=== PATIENT | female | born 1960 | race Caucasian/White ===

== ENCOUNTER 2021-08-25 15:30 | Outpatient (REF) | payer OTHER, SELFPAY ==
--- NOTE | ~2021-08-25 | XR_ITS ---
EXAMINATION: XR FOOT, RIGHT CLINICAL INFORMATION: Right foot osteoarthritis COMPARISON: 05/09/2013 TECHNIQUE: AP, lateral, and oblique views of the right foot. FINDINGS: Subtle subchondral lucencies in the base of the first proximal phalanx suggesting mild first MTP arthritis. No fracture or dislocation. Normal bony alignment. Calcaneal spurring. XR/XR foot RT 2V IMPRESSION: Mild first MTP arthritis.
[2021-08-25 15:50] LABS: MANUAL DIFF FLAG NO
[2021-08-25 15:58] LABS: Basophils Percent Auto 0.3 % (0-2); Eosinophils Absolute Auto 0.2 X10*3/uL (0.0-0.4); Eosinophils Percent Auto 2.2 % (0-4); Hematocrit 42.9 % (37.0-47.0); Hemoglobin 14.5 g/dl (12.0-16.0); Imm Gran Abs Auto 0.02 X10*3/uL (0.00-0.03); Imm Gran Pct Auto 0.3 % (0.0-0.4); Lymphocytes Absolute Auto 1.6 X10*3/uL (1.2-4.9); Mean Corpuscular HGB Conc 33.8 g/dl (31.0-35.0); Mean Corpuscular Hemoglobin 28.3 pg (27.0-33.0); Mean Corpuscular Volume 83.6 fL (80.0-98.0); Mean Platelet Volume 9.6 fL (9.4-12.3); Monocytes Absolute Auto 0.7 X10*3/uL (0.1-1.2); Monocytes Percent Auto 9.8 % (2-11); Neutrophils Absolute Auto 4.3 x10*3/uL (2.0-8.3); Neutrophils Percent Auto 63.4 % (45-73); Platelet Count 276 X10*3/uL (160-400); Red Blood Count 5.13 X10*6/uL (4.20-5.50); Red Cell Distribution Width 12.2 % (11.0-16.0); White Blood Count 6.7 X10*3/uL (4.8-10.8)
[2021-08-25 16:23] LABS: Alanine Aminotransferase 15 U/L (0-31); Albumin Level 4.4 g/dL (3.5-5.0); Alkaline Phosphatase 86 U/L (39-117); Anion Gap 12 (12-20); Aspartate Amino Transferase 19 U/L (5-31); Bilirubin Total 0.9 mg/dL (0.0-1.0); Blood Urea Nitrogen 14 mg/dL (9-16); Calcium 10.2 mg/dL (8.4-10.2); Carbon Dioxide 27 mmol/L (22-29); Chloride 106 mmol/L (96-108); Cholesterol 334 mg/dL; Estimated Glomerular Filt Rate > 60; Glucose Fasting 90 mg/dL (60-99); HDL Cholesterol 50 mg/dL; LDL Cholesterol Calculated 253 mg/dl; Sodium 141 mmol/L (135-145); Total Protein 7.7 g/dL (6.5-8.0); Triglycerides 155 mg/dL
[2021-08-25 16:44] LABS: Free T4 (Free Thyroxine) 0.99 ng/dL (0.71-1.85); Thyroid Stimulating Hormone 1.02 uIU/mL (0.32-4.0); Vitamin D 25-OH Total 17.1 ng/mL (>30)
== END 2021-08-25 15:31 | disposition home or self-care (01) ==
LOC: HO.XRAY 15:30
PROVIDERS: PCP Internal Medicine; Visit Provider Internal Medicine
DX: Z00.00 Encounter for general adult medical examination without abnormal findings (principal); E55.9 Vitamin D deficiency, unspecified; M19.071 Primary osteoarthritis, right ankle and foot
CPT/HCPCS: 36415; 73620; 80053; 80061; 82306; 84439; 84443; 85025

== ENCOUNTER → 2021-11-24 14:05 | Outpatient (BNVA) | payer OTHER, SELFPAY | PROVIDERS: PCP Internal Medicine; Referring Provider Internal Medicine; Visit Provider Internal Medicine | DX: I49.3 Ventricular premature depolarization (principal) | CPT/HCPCS: 93005 ==

== ENCOUNTER → 2021-12-16 07:30 | Outpatient (REF) | payer OTHER, SELFPAY ==
--- NOTE | 2021-12-16 07:43 | HM_ITS ---
Conclusion: 1. Patient was monitored for total period of 3 days 2. Baseline was normal sinus rhythm with average heart rate of 64 beats per minute 3. No significant pauses or bradycardia noted 4. Total of 25,371 PVCs of 2 different morphology accounting for 9.07% of total burden accounting for frequent PVCs 5. Rare PACs noted 6. Patient reported 11 events. Most of this correlated with isolated PVCs MTDD
== END ==
LOC: HO.CARD 07:30
PROVIDERS: Visit Provider Internal Medicine
DX: I49.3 Ventricular premature depolarization (principal)
CPT/HCPCS: 93242

== ENCOUNTER → 2021-12-30 11:02 | Outpatient (REF) | payer OTHER, SELFPAY | LOC: HO.SL 11:02 | PROVIDERS: PCP Internal Medicine; Visit Provider Internal Medicine | DX: G47.33 Obstructive sleep apnea (adult) (pediatric) (principal) | CPT/HCPCS: 95806 ==

== ENCOUNTER → 2022-01-06 07:25 | Outpatient (REF) | payer OTHER, SELFPAY ==
--- NOTE | 2022-01-06 07:30 | CA_ITS ---
Transthoracic Echocardiogram Patient (Last, First, Middle): iRmma Sawyer M Gender: Female Date of : 1960 Age: 61 Procedure Date: 01/06/2022 Procedure Type: Transthoracic Echocardiogram Location: OP Height: 160.02 cm Weight: 88.45 kg BSA: 1.91 m2 Heart Rate: bpm BP: 123 / 76 mmHg Sales Representative Health Insurance: [employer] Referring MD: Je Reyes MD Rn Spine: Kareem Boyd MD Symptoms: I49.3 - Ventricular premature depolarization Study Quality: Adequate ECG Rhythm: Frequent ventricular premature beats Conclusions: - 1. Normal LV systolic function with grade 1 diastolic dysfunction 2. Cardiac valvular Doppler within normal limits 3. Normal RV systolic pressure 4. No gross pericardial effusion Findings Left Ventricle Normal left ventricular size, thickness, and systolic function. The visually estimated ejection fraction is between 60-65%. Spectral Doppler is indicative of an impaired relaxation filling pattern. E/E prime ratio is <8, consistent with normal filling pressures. Evidence suggests grade I (mild) diastolic dysfunction. Right Ventricle Normal right ventricular cavity size and systolic function. Atria Both atria are normal in size. There is no evidence of interatrial shunt. Aortic Valve The aortic valve structure and function is likely normal. There is no aortic valve stenosis. There is no aortic valve regurgitation. Mitral Valve Normal mitral valve structure and function. There is trace mitral valve regurgitation. There is no mitral valve stenosis. Pulmonic Valve The pulmonic valve is likely normal. There is trace pulmonic valve regurgitation. Tricuspid Valve Normal tricuspid valve structure. There is mild tricuspid valve regurgitation. The right ventricular systolic pressure is normal. The right ventricular systolic pressure is 22 mmHg. Normal right atrial pressure. There is no evidence of pulmonary hypertension. Great Vessels All visible segments of the aorta are normal in size. The pulmonary artery was not well visualized. Venous The inferior vena cava is normal in size and collapses greater than 50% with inspiration. Pericardium/Pleural There is no evidence of pericardial effusion. Prior Study Comparison No prior study available for comparison. Measurements 2D Linear Measurements IVSd: 0.93 0.6-0.9/0.6-1.0 cm LVIDd: 4.30 3.9-5.3/4.2-5.9 cm LVIDd Index: 2.25 2.4-3.2/2.2-3.1 cm/m2 LVIDs: 2.44 2.0-3.6 cm LVPWd: 0.70 0.7-1.1 cm LA Diam: 3.20 2.7-3.8/3.0-4.0 cm LAIDs Index: 1.68 1.5-2.3 cm/m2 LV Mass: 133.52 67-162/88-224 g LV Mass Index: 69.91 43-95/49-115 g/m2 LVOT Diam: 2.00 3.0+(-)1.3 cm 2D Systolic Function EF 4C: 60.60 >55% Mitral Valve MV Pk E: 0.51 MV PK A: 0.60 MV Decel Time: 217.00 E/A: 0.90 E'Lateral: 5.98 E'Medial: 3.15 E/E' Med: 16.20 E/E' Lat: 8.50 PHT: 63.00 MVA PHT: 3.49 Decel [place]: 2.35 Aortic Valve AoV Pk Drake: 1.40 AoV Mn Drake: 0.92 AoV VTI: 0.24 AoV Pk Grad: 8.00 Aov Mn Grad: 4.00 TRINITY Cont.VTI: 3.25 LVOT LVOT Pk Drake: 1.28 LVOT Mn Drake: 0.88 LVOT VTI: 0.25 LVOT Pk Grad: 7.00 LVOT Mn Grad: 4.00 LVOT Diam: 2.00 LVOT Area: 3.14 Diastolic Function MV Pk E: 0.51 MV Pk A: 0.60 E/A: 0.90 E'Medial: 3.15 E/E' Med: 16.20 E' Laterial: 5.98 E/E' Lat: 8.50 Right Ventricle TAPSE (mm): 23.90 TVS' Drake: 18.00 Tricuspid Valve TR Pk Drake: 2.20 TR Pk Grad: 19.00 RA Press: 3.00 RVSP: 22.00 Great Vessels Aorta Sinus of Valsalva: 2.76 2.0-3.[address] [place]: 2.41 1.7-3.4 cm Ao Asc: 3.10 2.1-3.4 cm Pulmonary Veins Pulm Vein S/D 1.40 Pulmonary Valve PV Pk Drake: 0.99 Peak PV Grad: 4.00 Updated in Other Vendor System with Status of Final Kareem Boyd MD electronically signed on 01/06/2022 12:10:58 PM with status of Final
--- NOTE | 2022-01-06 07:31 | CA_ITS ---
Acquisition Time: 2022-01-06 08:17:14 Total Exercise Time: 00:07:00 Test Indications: ABN EKG Medications: SEE CHART Protocol: HOLLI Max HR: 155 BPM 96% of Pred: 160 BPM Max BP: 170/086 mmHG Max Work Load: 8.5 METS Exercise stress test with exercise 7 min of Holli protocol, with mild sob, no chest discomfort, with isolated PVCs and runs of ventricular bigeminy at baseline and early exercise which improved as exercise continued, No PVCs noted in stage 2 and 3, however they returned in recovery, with normotensive response to exercise, without EKG changes meeting criteria for ischemia. Test reviewed with Dr Boyd. Referred By: Je Reyes Overread By: GRAHAM KOHLI
== END ==
LOC: HO.CARD 07:25
PROVIDERS: Visit Provider Internal Medicine
DX: I49.3 Ventricular premature depolarization (principal)
CPT/HCPCS: 93017; 93306

== ENCOUNTER 2022-01-08 09:02 | Day surgery (SDC) | payer OTHER, SELFPAY ==
--- NOTE | 2022-01-07 08:25 | P.CONAN_ITS ---
Documented by User: Christel Reese NP 01/07/22 12:01 HPI - Anesthesia Eval Consult details Narrative: 61yo F for Colonoscopy Recent cardiac w/u for palpitations. Stress, Echo, Holter done. Optimized to proceed per cardiology. [facility] Active Problems Active Problems: All Active Problems (Updated 11/24/21 @ 14:31 by Je Reyes MD) PVC (premature ventricular contraction) (Acute) Past Medical History Medical History HLD (hyperlipidemia) HTN (hypertension) PVC (premature ventricular contraction) Family History Family History Father No problems noted. Mother No problems noted. Surgical History Surgical History (Updated 01/08/22 @ 10:26 by Lamar Dooley MD) H/O colonoscopy H/O hand surgery History of tonsillectomy History of tubal ligation Social History Social History Patient Tobacco Use Status: Never used Tobacco Are you DNR?: No Advance Directives: No Advance Directives Information Provided: Yes Nutrition Risks: No Nutritional Risk Meds Allergies Allergy/AdvReac Type Severity Reaction Status Date / Time azithromycin [From ZITHROMAX] Allergy Unknown RASH Verified 11/24/21 14:14 Home Medications Medication Instructions Recorded Confirmed Last Taken Type atorvastatin 20 mg tablet 20 mg PO DAILY 11/24/21 11/24/21 Unknown History cholecalciferol (vitamin D3) 50 50 mcg PO DAILY 11/24/21 11/24/21 Unknown History mcg (2,000 unit) capsule lisinopril 5 mg tablet 5 mg PO DAILY 11/24/21 11/24/21 01/08/22 History magnesium oxide 400 mg PO DAILY 11/24/21 11/24/21 Unknown History Exam Exam Date and Time: January 07, 2022 0825 Pertinent Lab Results Pertinent Lab Results: Laboratory Tests 08/25/21 08/25/21 15:48 15:48 WBC 6.7 Hgb 14.5 Hct 42.9 Plt Count 276 Sodium 141 Potassium 4.0 Chloride 106 Carbon Dioxide 27 BUN 14 Creatinine 0.89 Narrative Narrative: EKG 11/2021 sinus rhythm at 85/Min; nonspecific ST-T changes; normal MT/QTc Echo 01/2022 Conclusions: - 1.? Normal LV systolic function with grade 1 diastolic ? dysfunction? 2.? Cardiac valvular Doppler within normal limits? 3.? Normal RV systolic pressure? 4.? No gross pericardial effusion? ? ? Exercise Stress 01/2022 Protocol: NOEL ? Max HR: 155 BPM? 96% of? Pred: 160 BPM Max BP: 170/086 mmHG Max Work Load: 8.5 METS ? Exercise stress test with exercise 7 min of Noel protocol, with mild sob, no ?chest discomfort, with isolated PVCs and runs of ventricular bigeminy at ?baseline and early exercise which improved as exercise continued, No PVCs noted ?in stage 2 and 3, however they returned in recovery, with normotensive response ?to exercise, without EKG changes meeting criteria for ischemia. Test reviewed ?with Dr Boyd. Holter 12/2021 1. Patient was monitored for total period of 3 days 2. Baseline was normal sinus rhythm with average heart rate of 64 beats per minute 3. No significant pauses or bradycardia noted 4. Total of 25,371 PVCs of 2 different morphology accounting for 9.07% of total burden accounting for frequent PVCs 5. Rare PACs noted 6. Patient reported 11 events.? Most of this correlated with isolated PVCs Documented by User: Lamar Dooley MD 01/08/22 10:28 [facility] Past Medical History Medical History HLD (hyperlipidemia) HTN (hypertension) PVC (premature ventricular contraction) Family History Family History Father No problems noted. Mother No problems noted. Family history of problems with anesthesia: No Surgical History Surgical History (Updated 01/08/22 @ 10:26 by Lamar Dooley MD) H/O colonoscopy H/O hand surgery History of tonsillectomy History of tubal ligation History of Problems with Anesthesia: No Social History Social History Patient Tobacco Use Status: Never used Tobacco Are you DNR?: No Advance Directives: No Advance Directives Information Provided: Yes Nutrition Risks: No Nutritional Risk Meds Allergies Allergy/AdvReac Type Severity Reaction Status Date / Time azithromycin [From ZITHROMAX] Allergy Unknown RASH Verified 11/24/21 14:14 Home Medications Medication Instructions Recorded Confirmed Last Taken Type atorvastatin 20 mg tablet 20 mg PO DAILY 11/24/21 11/24/21 Unknown History cholecalciferol (vitamin D3) 50 50 mcg PO DAILY 11/24/21 11/24/21 Unknown History mcg (2,000 unit) capsule lisinopril 5 mg tablet 5 mg PO DAILY 11/24/21 11/24/21 01/08/22 History magnesium oxide 400 mg PO DAILY 11/24/21 11/24/21 Unknown History Exam Airway Mallampati Class: II TM Dist: >3cm Neck ROM: Full Loose/Missing/Broken Teeth: No Heart: RRR Lungs: CTAB Assessment and Plan Assessment Anesthesia Assessment: Anesthesia Plan Discussed and Chart Reviewed Final Anesthetic Review Family History of Problems with Anesthesia: No History of Problems with Anesthesia: No NPO: Yes ASA Class: II Final Preanesthetic Review: No Changes in Pt Med Stat, Meds/Allgs Chart Reviewed, Consent Obtained/Reviewed and Anes Risks/Benef Reviewed Patient Risk: Low Procedure Risk: Low Assessment/Block/Sedation in SS: Assess/Block/Sedation-SS Anesthetic Plan Anesthetic Plan: MAC: Disposition: Standard PACU
[2022-01-08 09:03] VITALS: BMI 33.6
[2022-01-08 09:04] VITALS: BP 140/95; PULSE 75; RESP 17; TEMP 36.4; O2SAT 97
[2022-01-08] MEDS: Lactated Ringers 1,000 ML 100 ML IVCONT (09:22)
[2022-01-08 11:28] VITALS: BP 82/50; PULSE 69; RESP 16; TEMP 36.3; O2SAT 93
--- NOTE | 2022-01-08 11:29 | P.BOP_ITS ---
Brief Operative Note Date of Service: 01/08/22 Pre-op diagnosis: Screening Post-op diagnosis: other (Rectal polyps) Procedure: Colonoscopy to the cecum and TI with bx/removal of polyps Surgeon: Shaun Batista Anesthesia: MAC Was an Analytics Leader used for this Procedure?: No Estimated blood loss (mL): 2.0 Pathology: other (A. Rectal polyps) Condition: stable Disposition: PACU
[2022-01-08 11:43] VITALS: BP 106/69; PULSE 78; RESP 18; O2SAT 97
[2022-01-08 11:58] VITALS: BP 113/66; PULSE 55; RESP 18; TEMP 36.9; O2SAT 98
--- NOTE | 2022-01-08 22:44 | OP_ITS ---
SURGEON: Shaun Batista MD INDICATIONS: The patient presents for evaluation of colorectal cancer screening and family history of colon cancer. Full consent was obtained from her for this, including risks of bleeding and perforation. PREOPERATIVE DIAGNOSIS: POSTOPERATIVE DIAGNOSIS: PROCEDURE PERFORMED: Colonoscopy to cecum and terminal ileum with biopsy and removal of polyps. ESTIMATED BLOOD LOSS: COMPLICATIONS: ANESTHESIA: Monitored anesthesia care. ASSISTANTS: SPECIMENS: PREOPERATIVE DIAGNOSES: Colorectal cancer screening and family history of colon cancer. POSTOPERATIVE DIAGNOSES: Colorectal cancer screening and family history of colon cancer, small rectal polyps, diverticulosis and internal hemorrhoids. DESCRIPTION OF PROCEDURE: The patient was placed in the left lateral decubitus position. The digital rectal exam revealed no abnormalities. The Olympus video pediatric colonoscope was entered into the rectum and advanced easily to the cecum. Once in the cecum, I did identify normal-appearing cecal pouch with appendiceal orifice and a normal-appearing ileocecal valve. The terminal ileum was cannulated and appeared normal. Scope withdrawn back in the colon. The entire cecum and ileocecal valve appeared normal. The scope was slowly withdrawn assessing all mucosal surfaces carefully. Preparation was excellent. There was a moderate amount of sigmoid diverticulosis. There was no evidence of any colitis nor angiodysplasia. In the rectum were 2 flat less than 5 mm and probable hyperplastic polyps, which were each biopsied and completely removed with cold biopsy forceps. The scope was retroflexed visualizing internal hemorrhoids, but no other pathology. The rectal mucosa appeared normal. The scope was straightened and withdrawn from the patient. She tolerated the procedure well and was returned to recovery area in stable condition. IMPRESSION: 1. Rectal polyps, status post biopsy removal. 2. Diverticulosis. 3. Internal hemorrhoids. PLAN: The results of biopsies will be checked. Even if these are not tubular adenoma, I would recommend a followup colonoscopy in 5 years. She would otherwise see me on a p.r.n. basis. Shaun Batista MD RMArlin/YESENIA / [id number]
== END 2022-01-08 12:38 | disposition home or self-care (01) ==
PROVIDERS: PCP Internal Medicine; Visit Provider Internal Medicine
PROC: 0DJD8ZZ Inspection of Lower Intestinal Tract, Via Natural or Artificial Opening Endoscopic (ICD-10-PCS; CPT 45378; principal; 2022-01-08 10:00)
DX: Z12.11 Encounter for screening for malignant neoplasm of colon (principal); Z80.0 Family history of malignant neoplasm of digestive organs; K62.1 Rectal polyp; K57.30 Diverticulosis of large intestine without perforation or abscess without bleeding; K64.8 Other hemorrhoids; I10 Essential (primary) hypertension; I49.3 Ventricular premature depolarization; E78.00 Pure hypercholesterolemia, unspecified; L40.50 Arthropathic psoriasis, unspecified
CPT/HCPCS: 45380; 88305

== ENCOUNTER 2022-01-29 07:50 | Outpatient (REF) | payer OTHER, SELFPAY ==
[2022-01-29 08:51] LABS: Alanine Aminotransferase 17 U/L (0-31); Albumin Level 4.3 g/dL (3.5-5.0); Alkaline Phosphatase 81 U/L (39-117); Anion Gap 11 (12-20); Aspartate Amino Transferase 19 U/L (5-31); Bilirubin Total 0.5 mg/dL (0.0-1.0); Blood Urea Nitrogen 16 mg/dL (9-16); Calcium 9.8 mg/dL (8.4-10.2); Carbon Dioxide 28 mmol/L (22-29); Chloride 106 mmol/L (96-108); Cholesterol 213 mg/dL; Estimated Glomerular Filt Rate > 60; Glucose Random 107 mg/dL (60-115); HDL Cholesterol 44 mg/dL; LDL Cholesterol Calculated 133 mg/dl; Magnesium 2.3 mg/dL (1.6-2.6); Potassium 4.3 mmol/L (3.3-5.1); Sodium 141 mmol/L (135-145); Total Protein 7.4 g/dL (6.5-8.0); Triglycerides 182 mg/dL
[2022-01-29 09:03] LABS: Vitamin D 25-OH Total 36.5 ng/mL (>30)
== END 2022-01-29 07:51 | disposition home or self-care (01) ==
LOC: HO.LAB 07:50
PROVIDERS: PCP Internal Medicine; Visit Provider Internal Medicine
DX: I10 Essential (primary) hypertension (principal); E78.00 Pure hypercholesterolemia, unspecified; E55.9 Vitamin D deficiency, unspecified; L40.50 Arthropathic psoriasis, unspecified
CPT/HCPCS: 36415; 80053; 80061; 82306; 83735

== ENCOUNTER → 2022-02-02 09:48 | Outpatient (BNVA) | payer OTHER, SELFPAY | PROVIDERS: PCP Internal Medicine; Referring Provider Internal Medicine; Visit Provider Internal Medicine | DX: I49.3 Ventricular premature depolarization (principal) ==

== ENCOUNTER 2022-05-28 08:19 | Outpatient (REF) | payer OTHER, SELFPAY ==
[2022-05-28 09:26] LABS: Cholesterol 149 mg/dL; HDL Cholesterol 38 mg/dL; LDL Cholesterol Calculated 92 mg/dl; Triglycerides 97 mg/dL
== END 2022-05-28 08:20 | disposition home or self-care (01) ==
LOC: HO.LAB 08:19
PROVIDERS: PCP Internal Medicine; Visit Provider Internal Medicine
DX: E78.00 Pure hypercholesterolemia, unspecified (principal)
CPT/HCPCS: 36415; 80061

== ENCOUNTER → 2022-06-28 10:56 | Outpatient (REF) | payer OTHER, SELFPAY ==
--- NOTE | 2022-06-28 12:32 | HM_ITS ---
Conclusion: 1. Patient was monitored for total period of 3 days 2. Baseline was normal sinus rhythm with average heart of 52 beats per minute with frequent sinus bradycardia, 81% of time heart rate less than 60 beats per minute 3. No significant pauses noted 4. Rare PACs noted 5. No patient reported events MTDD
== END ==
LOC: HO.CARD 10:56
PROVIDERS: PCP Internal Medicine; Visit Provider Internal Medicine
DX: I49.3 Ventricular premature depolarization (principal)
CPT/HCPCS: 93242

== ENCOUNTER 2024-06-04 16:13 | Outpatient (REF) | payer OTHER, SELFPAY ==
[2024-06-04 16:28] LABS: MANUAL DIFF FLAG NO
[2024-06-04 16:50] LABS: Basophils Percent Auto 0.5 % (0-2); Eosinophils Absolute Auto 0.2 X10*3/uL (0.0-0.4); Eosinophils Percent Auto 2.7 % (0-4); Hemoglobin 14.3 g/dl (12.0-16.0); Imm Gran Abs Auto 0.02 X10*3/uL (0.00-0.03); Imm Gran Pct Auto 0.3 % (0.0-0.4); Lymphocytes Absolute Auto 1.2 X10*3/uL (1.2-4.9); Lymphocytes Percent Auto 19.4 % (20-40); Mean Corpuscular HGB Conc 34.9 g/dl (31.0-35.0); Mean Corpuscular Hemoglobin 29.3 pg (27.0-33.0); Mean Platelet Volume 9.9 fL (9.4-12.3); Monocytes Absolute Auto 0.6 X10*3/uL (0.1-1.2); Neutrophils Absolute Auto 4.2 x10*3/uL (2.0-8.3); Neutrophils Percent Auto 67.1 % (45-73); Platelet Count 247 X10*3/uL (160-400); Red Blood Count 4.88 X10*6/uL (4.20-5.50); Red Cell Distribution Width 12.3 % (11.0-16.0); White Blood Count 6.2 X10*3/uL (4.8-10.8)
[2024-06-04 17:02] LABS: Rheumatoid Factor < 13.0 IU/mL (<15.0)
[2024-06-04 17:22] LABS: Alanine Aminotransferase 16 U/L (0-31); Albumin Level 4.5 g/dL (3.5-5.0); Alkaline Phosphatase 82 U/L (39-117); Anion Gap 14 (12-20); Aspartate Amino Transferase 18 U/L (5-31); Bilirubin Total 0.8 mg/dL (0.0-1.0); Blood Urea Nitrogen 18 mg/dL (9-16); C Reactive Protein < 0.10 mg/dL (< or = 0.50); Calcium 9.9 mg/dL (8.4-10.2); Carbon Dioxide 26 mmol/L (22-29); Chloride 106 mmol/L (96-108); Cholesterol 203 mg/dL (<200); Estimated Glomerular Filt Rate > 60; Glucose Random 108 mg/dL (60-115); HDL Cholesterol 48 mg/dL (>40); LDL Cholesterol Calculated 125 mg/dL (<100); Potassium 3.8 mmol/L (3.3-5.1); Sodium 142 mmol/L (135-145); Total Protein 7.9 g/dL (6.5-8.0); Triglycerides 153 mg/dL (<150)
[2024-06-04 17:38] LABS: Vitamin D 25-OH Total 57.6 ng/mL (>30)
[2024-06-04 19:26] LABS: Erythrocyte Sedimentation Rate 8 MM/HR (0-20)
[2024-06-06 12:28] LABS: Anti Nuclear Antibody Screen NEGATIVE (NEGATIVE)
== END 2024-06-04 16:14 | disposition home or self-care (01) ==
LOC: HO.LAB 16:13
PROVIDERS: PCP Internal Medicine; Visit Provider Internal Medicine
DX: E78.00 Pure hypercholesterolemia, unspecified (principal); I10 Essential (primary) hypertension; L40.52 Psoriatic arthritis mutilans
CPT/HCPCS: 36415; 80053; 80061; 82306; 85025; 85652; 86038; 86140; 86431